=== PATIENT | male | born 1990 | race Caucasian/White ===

== ENCOUNTER 2018-11-15 03:54 | Observation (INO) | payer BC ==
[2018-11-15] MEDS ORDERED: ONDANSETRON 4 MG/2 ML VIAL IVP STA (04:13)
[2018-11-15] MEDS ORDERED: KETOROLAC 30 MG/ML 1 ML VIAL IVP STA (04:13)
[2018-11-15] MEDS ORDERED: SODIUM CHLORIDE 0.9% 1,000 ML IV STA (04:13)
[2018-11-15 04:58] LABS: Basophils % (A) 0 %; Eosinophils # (A) 0.3 k/uL (0-0.7); Eosinophils % (A) 2 %; HCT 44.7 % (39.0-53.0); HGB 14.8 gm/dL (13.0-17.5); Lymphocytes # (A) 0.9 k/uL (1.0-4.8); Lymphocytes % (A) 6 %; MCH 28.9 pg (25.0-35.0); MCHC 33.1 g/dL (31.0-37.0); MCV 87.3 fL (80.0-100.0); Mean Platelet Volume 9.2; Monocytes # (A) 0.5 k/uL (0-1.0); Monocytes % (A) 3 %; Neutrophils # (A) 12.7 k/uL (1.3-7.7); Neutrophils % (A) 88 %; Platelet Count 210 k/uL (150-450); RBC 5.12 m/uL (4.30-5.90); RDW 14.3 % (11.5-15.5); WBC 14.5 k/uL (3.8-10.6)
[2018-11-15 05:09] LABS: ALT 51 U/L (21-72); AST 34 U/L (17-59); Albumin 4.7 g/dL (3.5-5.0); Alkaline Phosphatase 66 U/L (38-126); Amylase 51 U/L (30-110); Anion Gap 9 mmol/L; Blood Urea Nitrogen 13 mg/dL (9-20); Calcium 9.2 mg/dL (8.4-10.2); Carbon Dioxide 25 mmol/L (22-30); Chloride 107 mmol/L (98-107); Glucose 107 mg/dL (74-99); Lipase 69 U/L (23-300); Potassium 4.4 mmol/L (3.5-5.1); Sodium 141 mmol/L (137-145); Total Bilirubin 0.6 mg/dL (0.2-1.3)
--- NOTE | 2018-11-15 05:24 | XR ---
EXAM: XR Abdomen, 2 Views CLINICAL HISTORY: abdominal pain TECHNIQUE: Frontal upright view of the abdomen with upright view of the pelvis. COMPARISON: No relevant prior studies available. FINDINGS: Intraperitoneal space: No free air. Gastrointestinal tract: Unremarkable. No dilation. Organs: Mild hepatosplenomegaly suggested. 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 IMPRESSION: 1. Mild hepatosplenomegaly suggested. 2. 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
[2018-11-15] MEDS ORDERED: MORPHINE SULFATE 4 MG/ML SYRINGE IVP STA (05:37)
--- NOTE | 2018-11-15 05:37 | ED ---
Abdominal Pain HPI - General Chief Complaint: Abdominal Pain Stated Complaint: Abdominal Pain Time Seen by Provider: 11/15/18 04:12 Source: patient, family Mode of arrival: ambulatory Limitations: no limitations - History of Present Illness Initial Comments: Geoff is a pleasant 28-year-old woman who presents the emergency department today for evaluation of periumbilical and right lower quadrant abdominal pain. Patient reports he was in his usual state of health throughout the day yesterday, he woke from sleep at 1 AM with right lower quadrant abdominal pain. He was concerned this may be related to gas so he went to the store bought some Gas-X he took 2 pills. Patient reports that since that time he had a brief moment where he thought the pain was getting better however then the pain began to worsen it was more in the periumbilical region. Patient became concerned about the worsening pain and decided come to the emergency department for evaluation. Patient states he just want make sure he was in good health because he is supposed to be baptized later today and he didnt want to be feeling ill. - Related Data Home Medications Medication Instructions Recorded Confirmed No Known Home Medications 11/15/18 11/15/18 Allergies Allergy/AdvReac Type Severity Reaction Status Date / Time No Known Allergies Allergy Verified 11/15/18 04:02 Review of Systems ROS Statement: Those systems with pertinent positive or pertinent negative responses have been documented in the HPI. ROS Other: All systems not noted in ROS Statement are negative. Past Medical History Past Medical History: No Reported History History of Any Multi-Drug Resistant Organisms: None Reported Past Surgical History: No Surgical Hx Reported Past Psychological History: Anxiety Smoking Status: Never smoker Past Alcohol Use History: None Reported Past Drug Use History: None Reported General Exam - General Exam Comments Initial Comments: Physical Exam GENERAL: Patient is well-developed and well-nourished. Appears uncomfortable HENT: Normocephalic, Atraumatic. EYES: PERRL, EOMI PULMONARY: Unlabored respirations. CARDIOVASCULAR: There is a regular rate and rhythm without any murmurs gallops or rubs. ABDOMEN: NABD, tender to palpation, guarding in the RLQ SKIN: Skin is clear with no lesions or rashes and otherwise unremarkable. : Deferred NEUROLOGIC: Patient is alert and oriented x3. Moving all extremities spontaneously MUSCULOSKELETAL: Normal extremities with adequate strength and full range of motion. No lower extremity swelling or edema. No calf tenderness. PSYCHIATRIC: Normal psychiatric evaluation. Limitations: no limitations Limitations: no limitations Course Vital Signs 11/15/18 04:00 Temperature 97.4 F L Pulse Rate 61 Respiratory 18 Rate Blood Pressure 138/85 O2 Sat by Pulse 98 Oximetry Medical Decision Making - Medical Decision Making Patient was seen and evaluated history was obtained from patient and review of medical record Patient with lower abdominal pain he rates as a 7 out of 10 in intensity concerning for acute appendicitis labs and imaging were ordered Labs with leukocytosis and signed CT is concerning for appendicitis on initial evaluation, after evaluation by the radiologist does confirm acute appendicitis these findings were discussed with the general surgeon Dr. Upton who recommends patient be placed in observation and by mouth IV fluids pain meds as needed antiemetics as needed will receive antibiotics in the OR. Patient was updated on the plan. - Lab Data Result diagrams: 11/15/18 04:14 11/15/18 04:14 Lab Results 11/15/18 11/15/18 Range/Units 04:14 04:14 WBC 14.5 H (3.8-10.6) k/uL RBC 5.12 (4.30-5.90) m/uL Hgb 14.8 (13.0-17.5) gm/dL Hct 44.7 (39.0-53.0) % MCV 87.3 (80.0-100.0) fL MCH 28.9 (25.0-35.0) pg MCHC 33.1 (31.0-37.0) g/dL RDW 14.3 (11.5-15.5) % Plt Count 210 (150-450) k/uL Neutrophils % 88 % Lymphocytes % 6 % Monocytes % 3 % Eosinophils % 2 % Basophils % 0 % Neutrophils # 12.7 H (1.3-7.7) k/uL Lymphocytes # 0.9 L (1.0-4.8) k/uL Monocytes # 0.5 (0-1.0) k/uL Eosinophils # 0.3 (0-0.7) k/uL Basophils # 0.0 (0-0.2) k/uL Sodium 141 (137-145) mmol/L Potassium 4.4 (3.5-5.1) mmol/L Chloride 107 (98-107) mmol/L Carbon Dioxide 25 (22-30) mmol/L Anion Gap 9 mmol/L BUN 13 (9-20) mg/dL Creatinine 0.90 (0.66-1.25) mg/dL Est GFR (CKD-EPI)AfAm >90 (>60 ml/min/1.73 sqM) Est GFR (CKD-EPI)NonAf >90 (>60 ml/min/1.73 sqM) Glucose 107 H (74-99) mg/dL Calcium 9.2 (8.4-10.2) mg/dL Total Bilirubin 0.6 (0.2-1.3) mg/dL AST 34 (17-59) U/L ALT 51 (21-72) U/L Alkaline Phosphatase 66 (38-126) U/L Total Protein 7.0 (6.3-8.2) g/dL Albumin 4.7 (3.5-5.0) g/dL Amylase 51 (30-110) U/L Lipase 69 (23-300) U/L Disposition Clinical Impression: Acute appendicitis Disposition: ADMITTED IP TO THIS [facility] Condition: Stable Referrals: Candida Pablo DO [Primary Care Provider] - 1-2 days
--- NOTE | 2018-11-15 05:49 | CT ---
EXAM: CT Abdomen and Pelvis With Intravenous Contrast CLINICAL HISTORY: Pain RLQ TECHNIQUE: Axial computed tomography images of the abdomen and pelvis with intravenous contrast. CTDI is 18.87 mGy and DLP is 874.6 mGy-cm. This CT exam was performed using one or more of the following dose reduction techniques: automated exposure control, adjustment of the mA and/or kV according to patient size, and/or use of iterative reconstruction technique. COMPARISON: No relevant prior studies available. FINDINGS: Lung bases: Unremarkable. No mass. No consolidation. ABDOMEN: Liver: Hepatomegaly, measuring up to 19 4 cm in greatest craniocaudad dimension. Gallbladder and bile ducts: Unremarkable. No calcified stones. No ductal dilation. Pancreas: Unremarkable. No mass. No ductal dilation. Spleen: Mild splenomegaly, measuring up to 13.3 cm in greatest dimension, of unknown significance. Adrenals: Unremarkable. No mass. Kidneys and ureters: Macrolobulated cyst, measuring up to 2.5 cm in greatest axial dimension, in the lower pole of the right kidney, likely containing a few thin internal septations (as seen on series 202, image 57). Finding likely represents a Bosniak 2F renal cyst. No hydronephrosis. Stomach and bowel: Unremarkable. No obstruction. No mucosal thickening. PELVIS: Appendix: Distended, thick-walled appendix, measuring up to 0.9 cm in diameter, with associated surrounding fat stranding/inflammatory changes suggesting acute appendicitis. Bladder: Unremarkable. No mass. Reproductive: Unremarkable as visualized. ABDOMEN and PELVIS: Intraperitoneal space: Unremarkable. No free air. No significant fluid collection. Bones/joints: Mild bilateral sacroiliitis. Sacralization of the L5 right transverse process. No acute fracture. No dislocation. Soft tissues: Unremarkable. Vasculature: Unremarkable. No abdominal aortic aneurysm. Lymph nodes: Mildly prominent right lower quadrant mesenteric lymph nodes are seen, measuring up to 1 cm in short axis, likely reactive. IMPRESSION: 1. Acute appendicitis, as above. No free air. No fluid collection. No bowel obstruction. 2. Hepatomegaly. 3. Macrolobulated cyst, measuring up to 2.5 cm in greatest axial dimension, in the lower pole of the right kidney, likely containing a few thin internal septations. Finding likely represents a Bosniak 2F renal cyst. Attention on follow-up is recommended. <MYCVCSECTION> Critical Value Communications 11/15/18 05:50 Call Doctor Regarding Appendicitis, called MD Villanueva on 11/15 05:49 (-04:00)
[2018-11-15] MEDS ORDERED: ONDANSETRON 4 MG/2 ML VIAL IVP PRN (06:12)
[2018-11-15] MEDS ORDERED: NALOXONE 0.4 MG/ML 1 ML VIAL IV PRN (06:12)
[2018-11-15] MEDS ORDERED: MORPHINE SULFATE 4 MG/ML SYRINGE IV PRN (06:12)
[2018-11-15] MEDS: SODIUM CHLORIDE 0.9% 1,000 ML IV SCH ×3 (06:41→23:11)
[2018-11-15 07:10] LABS: Appearance,Urine Clear (Clear); Bilirubin,Urine Negative (Negative); Blood,Urine Negative (Negative); Color,Urine Yellow; Glucose,Urine (UA) Negative (Negative); Ketones,Urine Negative (Negative); Leukocyte Esterase,Urine Negative (Negative); Nitrite,Urine Negative (Negative); PH, Urine 6.5 (5.0-8.0); Protein,Urine Negative (Negative); Specific Gravity,Urine 1.027 (1.001-1.035); Urobilinogen,Urine <2.0 mg/dL (<2.0)
[2018-11-15 07:16] VITALS: BMI 28.5
[2018-11-15] MEDS ORDERED: MIDAZOLAM (PF) 2 MG/2 ML VIAL IV PRN (07:47)
[2018-11-15] MEDS ORDERED: DEXAMETHASONE SOD PHOSPHATE 10 MG/ML 1 ML VIAL IV ONE (07:47)
[2018-11-15] MEDS ORDERED: fentaNYL (PF) 50 MCG/ML 2 ML AMP IV PRN (07:47)
[2018-11-15] MEDS ORDERED: PROPOFOL 10 MG/ML 20 ML VIAL IV ONE (10:26)
[2018-11-15] MEDS ORDERED: SUCCINYLCHOLINE CHLORIDE 100 MG/5 ML SYR IV ONE (10:26)
[2018-11-15] MEDS ORDERED: DEXAMETHASONE SOD PHOS (MDV) 100 MG/10 ML VIAL ONE (10:26)
[2018-11-15] MEDS ORDERED: MIDAZOLAM 2 MG/2 ML VIAL ONE (10:26)
[2018-11-15] MEDS ORDERED: ROCURONIUM BROMIDE 10 MG/ML 10 ML VIAL IV ONE (10:26)
[2018-11-15] MEDS ORDERED: LIDOCAINE 1% INJ 10MG/ML (20 ML MDV) ONE (10:26)
[2018-11-15] MEDS ORDERED: GLYCOPYRROLATE 0.2 MG/ML 2 ML VIAL ONE (10:26)
[2018-11-15] MEDS ORDERED: fentaNYL (PF) 50 MCG/ML 2 ML AMP ONE (10:26)
[2018-11-15] MEDS ORDERED: KETOROLAC 30 MG/ML 1 ML VIAL ONE (10:26)
[2018-11-15] MEDS ORDERED: NEOSTIGMINE 1 MG/ML 10 ML VIAL ONE (10:26)
--- NOTE | 2018-11-15 10:30 | P.GSHP ---
History of Present Illness H&P Date: 11/15/18 Chief Complaint: Abdominal pain The patient's a 28-year-old man who presented with abdominal pain. It started periumbilical and radiated to right lower quadrant. At progressively worsened so he came into the emergency department and workup indicated acute appendicitis. - Review of Systems All systems: negative Past Medical History Past Medical History: No Reported History Additional Past Medical History / Comment(s): tooth abscess History of Any Multi-Drug Resistant Organisms: None Reported Past Surgical History: No Surgical Hx Reported Past Psychological History: Anxiety Smoking Status: Never smoker Past Alcohol Use History: None Reported Past Drug Use History: None Reported - Past Family History Mother Family Medical History: Diabetes Mellitus Father Family Medical History: Diabetes Mellitus Medications and Allergies Home Medications Medication Instructions Recorded Confirmed Type No Known Home Medications 11/15/18 11/15/18 History Allergies Allergy/AdvReac Type Severity Reaction Status Date / Time No Known Allergies Allergy Verified 11/15/18 07:56 Surgical - Exam Osteopathic Statement: *. No significant issues noted on an osteopathic structural exam other than those noted in the History and Physical/Consult. Vital Signs Temp Pulse Resp BP Pulse Ox 97.4 F L 61 18 138/85 98 11/15/18 04:00 11/15/18 04:00 11/15/18 04:00 11/15/18 04:00 11/15/18 04:00 - General well developed, well nourished, no distress - Eyes normal ocular movement - ENT normal mucosa - Neck trachea midline - Respiratory normal respiratory effort, clear to auscultation - Cardiovascular Rhythm: regular - Abdomen Abdomen: soft, tender (Right lower quadrant), bowel sounds (I proactive) Results - Labs 11/15/18 04:14 11/15/18 04:14 Abnormal Lab Results - Last 24 Hours (Table) 11/15/18 11/15/18 Range/Units 04:14 04:14 WBC 14.5 H (3.8-10.6) k/uL Neutrophils # 12.7 H (1.3-7.7) k/uL Lymphocytes # 0.9 L (1.0-4.8) k/uL Glucose 107 H (74-99) mg/dL Diabetes panel 11/15/18 Range/Units 04:14 Sodium 141 (137-145) mmol/L Potassium 4.4 (3.5-5.1) mmol/L Chloride 107 (98-107) mmol/L Carbon Dioxide 25 (22-30) mmol/L BUN 13 (9-20) mg/dL Creatinine 0.90 (0.66-1.25) mg/dL Glucose 107 H (74-99) mg/dL Calcium 9.2 (8.4-10.2) mg/dL AST 34 (17-59) U/L ALT 51 (21-72) U/L Alkaline Phosphatase 66 (38-126) U/L Total Protein 7.0 (6.3-8.2) g/dL Albumin 4.7 (3.5-5.0) g/dL Calcium panel 11/15/18 Range/Units 04:14 Calcium 9.2 (8.4-10.2) mg/dL Albumin 4.7 (3.5-5.0) g/dL Pituitary panel 11/15/18 Range/Units 04:14 Sodium 141 (137-145) mmol/L Potassium 4.4 (3.5-5.1) mmol/L Chloride 107 (98-107) mmol/L Carbon Dioxide 25 (22-30) mmol/L BUN 13 (9-20) mg/dL Creatinine 0.90 (0.66-1.25) mg/dL Glucose 107 H (74-99) mg/dL Calcium 9.2 (8.4-10.2) mg/dL Adrenal panel 11/15/18 Range/Units 04:14 Sodium 141 (137-145) mmol/L Potassium 4.4 (3.5-5.1) mmol/L Chloride 107 (98-107) mmol/L Carbon Dioxide 25 (22-30) mmol/L BUN 13 (9-20) mg/dL Creatinine 0.90 (0.66-1.25) mg/dL Glucose 107 H (74-99) mg/dL Calcium 9.2 (8.4-10.2) mg/dL Total Bilirubin 0.6 (0.2-1.3) mg/dL AST 34 (17-59) U/L ALT 51 (21-72) U/L Alkaline Phosphatase 66 (38-126) U/L Total Protein 7.0 (6.3-8.2) g/dL Albumin 4.7 (3.5-5.0) g/dL - Imaging CT scan - abdomen: report reviewed, image reviewed Assessment and Plan (1) Acute appendicitis Current Visit: Yes Status: Acute Code(s): K35.80 - UNSPECIFIED ACUTE APPENDICITIS SNOMED Code(s): 43080170 Plan: Laparoscopic appendectomy possible open. The procedure risks and complications were discussed along with the usual postoperative course. Questions were encouraged and answered. We will do that for him today.
[2018-11-15] MEDS: AMPICILLIN-SULBACTAM 3 GM in SODIUM CHLORIDE 0.9% 100 ML IVPB SCH ×2 (10:39→15:51)
[2018-11-15] MEDS ORDERED: IV FLUID CONTINUATION 600 ML IV ONE ×2 (10:54)
[2018-11-15] MEDS ORDERED: BUPIVACAIN-EPI 0.5%-1:200,000 30 ML VIAL SQ ONE ×2 (10:58→11:07)
[2018-11-15] MEDS ORDERED: HYDROmorphone 0.5 MG/0.5 ML SYRINGE IVP PRN (11:12)
[2018-11-15] MEDS ORDERED: HYDROcodone/APAP 5-325MG 1 EACH TAB PO PRN ×2 (11:12)
--- NOTE | 2018-11-15 11:20 | P.OP ---
Date of Procedure: 11/15/18 Preoperative Diagnosis: Acute appendicitis, umbilical hernia Postoperative Diagnosis: Acute appendicitis, umbilical hernia Procedure(s) Performed: Laparoscopic appendectomy Anesthesia: CJ Surgeon: Nallely Upton Pathology: other (Appendix) Condition: stable Disposition: PACU Indications for Procedure: Patient presented with pain and a computed tomography scan suggestive of acute appendicitis Description of Procedure: The patient's taken the operative suite where he is prepped and draped in the usual sterile manner under general endotracheal anesthetic. An infraumbilical incision was made. There was a hernia defect with a small amount of incarcerated omentum. The hernia sac was opened and the incarcerated omentum was reduced back into the abdominal cavity. A trocar was then inserted through the fascial defect and pneumoperitoneum was established with CO2 gas. Sites are chosen for accessory trochars needs are placed through small skin incisions. He may be developing a small left direct inguinal hernia otherwise the liver, diaphragm, large and small bowel were normal where they were seen. The appendix was lateral to the cecum. The cecum was reflected medially and the appendix was grasped. The mesoappendix was divided with harmonic scissors down to the base. The base was then ligated with 0 PDS Endoloops 2. The appendix was transected and placed into a specimen retrieval bag. The appendiceal stump and mesentery were examined and noted to be hemostatic. The pneumoperitoneum was released. The specimen retrieval bag was removed. The fascia at the umbilicus was closed with [id number] sutures of 0 Prolene. The skin was closed with 4-0 Vicryl in a subcuticular manner. Steri-Strips and dressings were applied. He tolerated the procedure without difficulty and was taken recovery room in satisfactory condition. According to or personnel, WERE correct.
[2018-11-15] MEDS: LACTATED RINGERS 1,000 ML IV SCH ×2 (12:21→20:33)
[2018-11-15] MEDS: KETOROLAC 30 MG/ML 1 ML VIAL IVP SCH ×3 (12:21→23:13)
[2018-11-15] MEDS: FAMOTIDINE 20 MG TAB PO SCH (23:10)
[2018-11-16] MEDS: AMPICILLIN-SULBACTAM 3 GM in SODIUM CHLORIDE 0.9% 100 ML IVPB SCH (01:01)
[2018-11-16] MEDS: KETOROLAC 30 MG/ML 1 ML VIAL IVP SCH (05:43)
[2018-11-16] MEDS: SODIUM CHLORIDE 0.9% 1,000 ML IV SCH (05:45)
[2018-11-16] MEDS: FAMOTIDINE 20 MG TAB PO SCH (07:55)
[2018-11-16 08:04] VITALS: BP 105/82; PULSE 95; RESP 12; TEMP 98
--- NOTE | 2018-11-16 09:30 | P.DS ---
Providers Date of admission: 11/15/18 06:12 Expected date of discharge: 11/16/18 Attending physician: Nallely Upton Primary care physician: Candida Pablo DO - Discharge Diagnosis(es) (1) Acute appendicitis Status: Acute Hospital Course: The patient presented to the emergency department with abdominal pain. CT was suggestive of acute appendicitis. He was placed on observation. Subsequently taken the OR for laparoscopic appendectomy. He also had a small billable hernia which was repaired intraoperatively. He was given prophylactic antibiotics. Postoperative day 1 was felt to be stable for discharge Patient Condition at Discharge: Good Plan - Discharge Summary New Discharge Prescriptions: No Action No Known Home Medications Discharge Medication List No Known Home Medications 11/15/18 [History] Follow up Appointment(s)/Referral(s): Nallely Upton DO [Doctor of Osteopathic Medicine] - 2 Weeks Candida Pablo DO [Primary Care Provider] - 1-2 days Patient Instructions/Handouts: Laparoscopic Appendectomy (DC) Activity/Diet/Wound Care/Special Instructions: Keep the dressings on until Saturday. These can then be removed and you may shower. The incisions can be covered with a light dressing if they were rubbing on clothing or draining a small amount of bloody fluid. Ice to the incisions for 24 hours. No soaking the incisions in a tub for 1 week. No lifting greater than 10-15 pounds for 4 weeks. You may take tylenol, motrin or aleve for incisional pain. 2 tablespoons milk of magnesia if there is constipation from the pain medication. Call if questions or concerns Discharge Disposition: HOME SELF-CARE
== END 2018-11-16 09:24 | disposition home or self-care (01) ==
LOC: EC 03:54 → 4SSUR 06:12
PROVIDERS: ADMIT Surgery; ATTEND Surgery
DX: K35.30 Acute appendicitis with localized peritonitis, without perforation or gangrene (principal); K42.9 Umbilical hernia without obstruction or gangrene; F41.9 Anxiety disorder, unspecified; R16.0 Hepatomegaly, not elsewhere classified; Z86.19 Personal history of other infectious and parasitic diseases; Z83.3 Family history of diabetes mellitus
CPT/HCPCS: 96361; 96374; 96375; 99285; 36415; 88304; 80053; 82150; 83690; 85025; 81003; 74018; 74177; 44970; 49653; G0378 ×2; J2250; J2710; J2405; J2001; J3010; J1885 ×2; J0295 ×2; J1100; J0330; J2704; Q9967

== ENCOUNTER → 2019-04-24 | Outpatient (CLI) | payer BC ==
--- NOTE | 2019-04-26 09:03 | CT ---
EXAMINATION TYPE: CT pelvis w con DATE OF EXAM: 04/24/2019 COMPARISON: 11/15/2018 INDICATION: Right sided inguinal pain with exertion. DLP: 802.9 mGycm, Automated exposure control for dose reduction was used. CONTRAST: 100ml mL of Isovue 300. Study performed with Oral Contrast TECHNIQUE: Axial images were obtained from above the iliac crest to the pubic rami in the axial plane at 5 mm thick sections. Reconstructed images are reviewed on the computer in the coronal plane. FINDINGS: Limited CT sections were obtained through the lower abdomen which appear unremarkable. A in ferior pole renal cyst remains present on the right. There may be a very small right periumbilical fat-containing hernia. This is approximately 1.2 cm in transverse dimension. This is smaller than the comparison. CT PELVIS: No suspicious inguinal hernias are evident. Loops of bowel within the abdomen and pelvis are normal. There are loops of bowel which are incom pletely distended or lack oral contrast limiting their evaluation. Appendix: Normal as visualized. Urinary bladder: Normal. Genitourinary structures: Prostate is unremarkable. Osseous structures: No suspicious lytic or sclerotic lesions. IMPRESSIONS: 1. No suspicious acute changes CT pelvis. 2. Small residual fat-containing hernia in the right periumbilical region
== END ==
LOC: RADCTMAIN 16:04
PROVIDERS: ATTEND Surgery
DX: K42.9 Umbilical hernia without obstruction or gangrene (principal)
CPT/HCPCS: 72193; Q9967 ×2

== ENCOUNTER 2019-07-08 08:50 | Day surgery (SDC) | payer BC ==
[2019-07-06 17:05] VITALS: BMI 29.1
[~2019-07-08 08:50] MED LIST: DEXAMETHASONE SOD PHOSPHATE 10 MG/ML 1 ML VIAL IV ONE; HEPARIN SODIUM,PORCINE 5,000 UNIT/ML 1 ML VIAL SQ ONE; HYDROmorphone 0.5 MG/0.5 ML SYRINGE IVP PRN; LACTATED RINGERS 1,000 ML IV SCH; LIDOCAINE 1% 20 ML VIAL (10MG/ML) FOR IV START INTRADERMA PRN; MIDAZOLAM 2 MG/2 ML VIAL IV PRN; ONDANSETRON 4 MG/2 ML VIAL IVP ONE; SCOPOLAMINE 1.5MG/72HR PATCH TRANSDERM ONE
[2019-07-08] MEDS ORDERED: MIDAZOLAM 2 MG/2 ML VIAL IVP ONE (10:32)
[2019-07-08] MEDS ORDERED: fentaNYL (PF) 50 MCG/ML 2 ML AMP IVP ONE (10:32)
--- NOTE | 2019-07-08 10:40 | P.GSHP ---
History of Present Illness H&P Date: 07/08/19 Chief Complaint: Incisional hernia This a 20-year-old male who has complaints of pain near his umbilical incision right previous repair. Patient also mass near. He presents today for laparoscopic robotic-assisted repair. Past Medical History Past Medical History: No Reported History Additional Past Medical History / Comment(s): tooth abscess History of Any Multi-Drug Resistant Organisms: None Reported Past Surgical History: Appendectomy, Hernia Repair Past Anesthesia/Blood Transfusion Reactions: No Reported Reaction Smoking Status: Never smoker - Past Family History Mother Family Medical History: Diabetes Mellitus Father Family Medical History: Diabetes Mellitus Medications and Allergies Home Medications Medication Instructions Recorded Confirmed Type No Known Home Medications 11/15/18 07/08/19 History Allergies Allergy/AdvReac Type Severity Reaction Status Date / Time No Known Allergies Allergy Verified 07/08/19 09:51 Surgical - Exam - General well developed, well nourished, no distress - Eyes PERRL - ENT normal pinna - Neck no masses - Respiratory normal expansion - Cardiovascular Rhythm: regular - Abdomen Abdomen: soft, non tender Hernia: incisional (2 cm incisional hernia located near umbilicus) Assessment and Plan Assessment: Incisional hernia. We'll perform laparoscopic robotic system repair.
[2019-07-08] MEDS ORDERED: BUPIVACAINE (PF) 0.25% 30 ML VIAL SQ ONE ×2 (10:54→11:14)
[2019-07-08] MEDS ORDERED: MIDAZOLAM 2 MG/2 ML VIAL ONE (10:57)
[2019-07-08] MEDS ORDERED: HYDROmorphone (PF) 1 MG/ML ONE (10:57)
[2019-07-08] MEDS ORDERED: MEPERIDINE 50 MG/ML SYRINGE ONE (10:57)
[2019-07-08] MEDS ORDERED: DEXAMETHASONE SOD PHOSPHATE 4 MG/ML 1 ML VIAL ONE (10:57)
[2019-07-08] MEDS ORDERED: LIDOCAINE 1% INJ 10MG/ML (20 ML MDV) ONE (10:57)
[2019-07-08] MEDS ORDERED: KETOROLAC 30 MG/ML 1 ML VIAL ONE (10:57)
[2019-07-08] MEDS ORDERED: PROPOFOL 10 MG/ML 20 ML VIAL IV ONE (10:57)
[2019-07-08] MEDS ORDERED: GLYCOPYRROLATE 0.2 MG/ML 2 ML VIAL ONE (10:57)
[2019-07-08] MEDS ORDERED: ROPIVACAINE 5 MG/ML 30 ML VIAL ONE (10:57)
[2019-07-08] MEDS ORDERED: fentaNYL (PF) 50 MCG/ML 2 ML AMP ONE (10:57)
[2019-07-08] MEDS ORDERED: NEOSTIGMINE 1 MG/ML 10 ML VIAL ONE (10:57)
[2019-07-08] MEDS ORDERED: ROCURONIUM BROMIDE 10 MG/ML 10 ML VIAL IV ONE (10:57)
--- NOTE | 2019-07-08 11:55 | P.OP ---
Date of Procedure: 07/08/19 Preoperative Diagnosis: Recurrent incisional hernia Postoperative Diagnosis: Recurrent incisional hernia Procedure(s) Performed: Laparoscopic robotic repair of recurrent incisional hernia Anesthesia: CJ Surgeon: Stefan Louise Estimated Blood Loss (ml): 10 Pathology: none sent Condition: stable Disposition: PACU Description of Procedure: The patient was placed on the operating table in the supine position. He received general anesthesia. His abdomen was prepped and draped usual fashion. Using a 5 mm optical trocar under direct visualization the peritoneal cavity was entered in the left upper quadrant. The abdomen was then insufflated. The laparoscope was placed back into the perineal cavity. Next a 8 mm robotic trocar was placed in the left lower quadrant and a 12 mm robotic trocar was placed in the left lateral position. The original 5 mm trocar was exchanged for a 8 mm robotic trocar. The patient's placed in the left side up position. And the patient was docked to the robot. The incisional hernia was visualized. Using hook cautery the incarcerated omentum was dissected free. Using hook cautery the peritoneum over the incisional hernia was excised. The fascial opening was repaired using 0V LOC suture. Next a piece of 11 cm round ventral light ST mesh was placed into the. Cavity and secured with 2 OV lock suture. The patient was undocked the robot. The needles were retrieved. The fascia of the 12 mm trocar site was closed with 0 Ethibond suture. Skin was closed interrupted 3-0 Monocryl suture. Dermabond dressings was applied. Patient tolerated procedure well and was sent to recovery room stable condition.
[2019-07-08 12:10] VITALS: TEMP 97.2
--- NOTE | 2019-07-08 12:44 | P.ANPRN ---
Procedure Note - Anesthesia - Nerve Block Performed Bilateral Rectus Abdominis Single Time Out Performed: Yes Date of Procedure: 07/08/19 Procedure Start Time: : Procedure Stop Time: :41 Location of Patient: PreOp Indication: Acute Post-Operative Pain, Requested by Surgeon Sedation Type: Sedate with meaningful contact maintained Preparation: Sterile Prep Position: Supine Catheter: None Needle Types: Powered Outcomes Needle Gauge: 21 Ultrasound used to visualize needle placement: Yes Ultrasound used to observe medication spread: Yes Injectate: 0.5% Ropivacaine (see comment for volume) (ropivacaine 0.5% 20 cc + decadron 4mg-- per side) Blood Aspirated: No Pain Paresthesia on Injection Noted: No Resistance on Injection: Normal Image Stored and Saved: Yes Events: Uneventful and Well Tolerated
[2019-07-08] MEDS ORDERED: HYDROcodone/APAP 5-325MG 1 EACH TAB PO ONE ×2 (13:23→13:32)
[2019-07-08 13:33] VITALS: BP 137/77; PULSE 87; RESP 20
== END 2019-07-08 14:03 | disposition home or self-care (01) ==
LOC: OR 08:50
PROVIDERS: ATTEND Surgery
DX: K43.0 Incisional hernia with obstruction, without gangrene (principal); Z90.49 Acquired absence of other specified parts of digestive tract; Z98.890 Other specified postprocedural states; Z83.3 Family history of diabetes mellitus
CPT/HCPCS: 49657; 64488; 86900; 86901; 86850; 36415; C1781; J2250; J1644; J1100 ×2; J2710; J2175; J0690; J2405; J2001; J3010; J1885; J1170; J2795; J2704